=== PATIENT | female | born 1975 | race Caucasian/White ===

== ENCOUNTER 2020-11-07 10:03 | Emergency (ER) | payer MEDICAID ==
--- NOTE | 2020-11-07 10:43 | XRAY Report ---
PROCEDURE: Chest 1 View X-Ray INDICATIONS: Chest pain TECHNIQUE: One view of the chest was acquired. COMPARISON: None FINDINGS: Surgical changes and devices: None. Lungs and pleura: No pleural effusions or pneumothorax. Lungs are clear. Mediastinum: Mediastinal contours appear normal. Heart size is normal. Bones and chest wall: No suspicious bony lesions. Overlying soft tissues appear unremarkable. IMPRESSION: No acute cardiopulmonary pathology. Reviewed by: Stuart Rosado MD on 11/07/2020 10:42 AM PDT Approved by: Stuart Rosado MD on 11/07/2020 10:42 AM PDT Station ID: [id number]
[2020-11-07 11:02] LABS: BASOPHILS % (AUTO) 0.5 %; EOSINOPHILS % (AUTO) 0.2 %; HCT - HEMATOCRIT 37.4 % (37.0-47.0); HGB - HEMOGLOBIN 12.4 g/dL (12.0-16.0); LYMPHOCYTES # (AUTO) 1.5 10^3/uL (1.5-3.5); LYMPHOCYTES % (AUTO) 18.7 %; MEAN CORPUSCULAR HEMOGLOBIN 29.9 pg (27.0-31.0); MEAN CORPUSCULAR HGB CONC 33.2 g/dL (32.0-36.0); MEAN CORPUSCULAR VOLUME 90.1 fL (81.0-99.0); MEAN PLATELET VOLUME 10.3 fL (7.9-10.8); MONOCYTES # (AUTO) 0.5 10^3/uL (0.0-1.0); NEUTROPHILS # (AUTO) 6.1 10^3/uL (1.5-6.6); NEUTROPHILS % (AUTO) 74.4 %; PLT - PLATELET COUNT 338 10^3/uL (130-450); RED BLOOD COUNT 4.15 10^6/uL (4.20-5.40); RED CELL DISTRIBUTION WIDTH 13.4 % (12.0-15.0); WHITE BLOOD COUNT 8.2 x10^3/uL (4.8-10.8)
--- NOTE | 2020-11-07 11:09 | ED Physician Documentation ---
PD HPI CHEST PAIN - Stated complaint Stated Complaint: CHEST PRESSURE/SENT BY - Chief complaint Chief Complaint: Cardiac - History obtained from History obtained from: Patient - History of Present Illness Timing - onset: How many months ago (1) Timing - duration: Months (1) Timing - details: Gradual onset, Still present, Waxing and waning (never really resolves with steady tightness/pressure at mild level, but worse with activity/walking. She has still been able to do usual level of walking, but much more winded/chest tightness with it. Mild dry cough but persistent. Onset few days after 2nd Moderna COVID vaccine.) Quality: Tightness. No: Sharp, Tearing Location: Substernal, Left chest Radiation: No: Neck, Back Improved by: No: Rest Worsened by: Exertion. No: Eating, Movement, Palpation Associated symptoms: Shortness of air, Cough. No: Nausea, Feeling faint / dizzy, Palpitations Similar symptoms before: Has not had sx before Review of Systems Constitutional: denies: Fever, Chills Nose: denies: Rhinorrhea / runny nose, Congestion Throat: denies: Sore throat Cardiac: reports: Chest pain / pressure. denies: Palpitations, Pedal edema, Calf pain Respiratory: reports: Dyspnea. denies: Cough, Wheezing GI: denies: Abdominal Pain, Nausea, Vomiting, Diarrhea Skin: denies: Rash, Lesions Neurologic: denies: Altered mental status, Headache PD PAST MEDICAL HISTORY - Past Medical History Cardiovascular: None Respiratory: None Neuro: None Endocrine/Autoimmune: None - Present Medications Home Medications: Ambulatory Orders Medication Instructions Recorded Confirmed Albuterol Sulf [Ventolin Hfa 2 - 3 puffs INH Q4HR PRN #1 inhaler 11/07/20 Inhaler] dexAMETHasone [Decadron] 4 mg PO DAILY #5 tablet 11/07/20 - Allergies Allergies/Adverse Reactions: Allergies Allergy/AdvReac Type Severity Reaction Status Date / Time No Known Drug Allergies Allergy Verified 11/07/20 10:17 - Living Situation Living Situation: reports: Alone Living Arrangement: reports: At home PD ED PE NORMAL - Vitals Vital signs reviewed: Yes - General General: Alert and oriented X 3, No acute distress, Well developed/nourished - HEENT HEENT: Pharynx benign - Neck Neck: Supple, no meningeal sign, No adenopathy - Cardiac Cardiac: RRR, No murmur - Respiratory Respiratory: Clear bilaterally, Other (no chestwall tenderness. ) - Abdomen Abdomen: Normal bowel sounds, Soft, Non tender, Non distended - Derm Derm: Normal color, Warm and dry - Extremities Extremities: No tenderness to palpate, Normal ROM s pain, No edema, No calf tenderness / cord - Neuro Neuro: Alert and oriented X 3, No motor deficit, Normal speech Results - Vitals Vitals: Vital Signs - 24 hr 11/07/20 11/07/20 11/07/20 10:13 11:05 11:52 Temperature 36.2 C L 36.2 C L Heart Rate 96 83 84 Respiratory 20 19 18 Rate Blood Pressure 174/89 H 174/80 H O2 Saturation 99 96 11/07/20 11/07/20 11/07/20 12:00 13:50 15:30 Temperature 36.5 C Heart Rate 88 19 L 88 Respiratory 16 20 16 Rate Blood Pressure 131/84 H 125/83 H 139/79 H O2 Saturation 100 100 99 Oxygen O2 Source Room air - EKG (time done) 10:09 Rate: Rate (enter#) (86) Rhythm: NSR [place]: Normal Intervals: Normal IA QRS: Normal Ischemia: Normal ST segments. No: ST elevation c/w ischemia, ST depression Compare to prior EKG: Old EKG unavailable - Labs Labs: Laboratory Tests 11/07/20 11/07/20 11/07/20 10:57 10:57 10:57 WBC 8.2 RBC 4.15 L Hgb 12.4 Hct 37.4 MCV 90.1 MCH 29.9 MCHC 33.2 RDW 13.4 Plt Count 338 MPV 10.3 Neut # (Auto) 6.1 Lymph # (Auto) 1.5 [place] # (Auto) 0.5 Eos # (Auto) 0.0 Baso # (Auto) 0.0 Absolute Nucleated RBC 0.00 Nucleated RBC % 0.0 ESR Sodium 137 Potassium 3.5 Chloride 102 Carbon Dioxide 25 Anion Gap 10.0 BUN 14 Creatinine 0.7 Estimated GFR (MDRD) 90 Glucose 108 H Calcium 9.0 Total Bilirubin 0.6 AST 18 ALT 15 Alkaline Phosphatase 62 Troponin I High Sens < 2.3 L B-Natriuretic Peptide Total Protein 7.9 Albumin 4.1 Globulin 3.8 Albumin/Globulin Ratio 1.1 Lipase 37 11/07/20 11/07/20 10:57 10:57 WBC RBC Hgb Hct MCV MCH MCHC RDW Plt Count MPV Neut # (Auto) Lymph # (Auto) [place] # (Auto) Eos # (Auto) Baso # (Auto) Absolute Nucleated RBC Nucleated RBC % ESR 24 H Sodium Potassium Chloride Carbon Dioxide Anion Gap BUN Creatinine Estimated GFR (MDRD) Glucose Calcium Total Bilirubin AST ALT Alkaline Phosphatase Troponin I High Sens B-Natriuretic Peptide 35 Total Protein Albumin Globulin Albumin/Globulin Ratio Lipase - Rads (name of study) chest xray Radiology: Prelim report reviewed, See rad report (no acute process) ECHO Radiology: Prelim report reviewed (no effusion, normal contractility with EF 65- 70%. no notable abnormality. ), See rad report PD MEDICAL DECISION MAKING - ED course Complexity details: reviewed results (no acute process. Normal labs. Still consider airway process with some concern of anginal equivalent but would be unusual to have continual symptoms even at rest without some sign of heart failure, trop, or ECHO changes. Still provacative testing would be more definitive. ), re-evaluated patient, considered differential (can eval for cardiomyopathy, carditis but also consider ischemic heart disease, reactive airway process, asthma, etc.), d/w patient, d/w [employer] sales consultant (storeperson for PCP, who will pass message to PCP for my concern of expidted follow up and stress testing. ) Departure - Departure Disposition: 01 Home, Self Care Clinical Impression: Dyspnea, Chest pressure Condition: Stable Record reviewed to determine appropriate education?: Yes Instructions: ED Chest Pain Atypical Unkn Cause Follow-Up: Mary Carmen Lackey ARNP [Primary Care Provider] - Prescriptions: Albuterol Sulf [Ventolin Hfa Inhaler] 2 - 3 puffs INH Q4HR PRN #1 inhaler PRN Reason: Shortness Of Air/Wheezing dexAMETHasone [Decadron] 4 mg PO DAILY #5 tablet Comments: Your tests here which include blood tests, EKG, chest x-ray, echocardiogram are appear normal. No signs of heart enlargement or cardiomyopathy or pericarditis or heart failure. No pneumonia nor fluid in the lungs. Still under consideration would be ischemic heart disease. I talked with your on-call provider for your primary care and they will arrange a expedited stress testing for the heart to ensure that is not the problem. Other consideration would be some inflammation of the airways. We can try treating that with Decadron steroid as well as an albuterol inhaler as directed. I would suggest the inhaler 2 to 3 puffs 4 times a day for the next several days to week regularly and then to as needed. Follow-up with your primary care regarding reevaluation in several days and also arranging the stress test. Discharge Date/Time: 11/07/20 15:41
[2020-11-07 11:26] LABS: ALBUMIN 4.1 g/dL (3.2-5.5); ALBUMIN/GLOBULIN RATIO 1.1 (1.0-2.2); BILIRUBIN,TOTAL 0.6 mg/dL (0.2-1.0); CREATININE 0.7 mg/dL (0.4-1.0); POTASSIUM 3.5 mmol/L (3.5-5.0); TOTAL PROTEIN 7.9 g/dL (6.7-8.2)
[2020-11-07] MEDS ORDERED: ALBUTEROL 1 PUFF INH STA (11:34)
[2020-11-07 15:37] VITALS: BP 139/79
== END 2020-11-07 15:41 | disposition home or self-care (01) ==
LOC: ED 10:03
DX: R07.89 Other chest pain (principal); R06.02 Shortness of breath; R05 Cough
CPT/HCPCS: 36415; 80053; 83690; 83880; 84484; 85025; 85651; 93005; 93306; 94640; 99284

== ENCOUNTER 2020-12-27 09:05 | Outpatient (CLI) | payer MEDICAID ==
--- NOTE | 2020-12-27 10:42 | CARDIAC PROCEDURE NOTE ---
Stress Test Report Service Date: 12/27/20 Service Time: 10:00 Ordering Provider: Mary Carmen Lackey FNP-C Indication for Test: Assess for ischemic contribution to syndrome of reduced exertional tolerance, palpitations and nearly constant chest pressure, that started after second Covid vaccine. Significant Medical History: -Sherine has had progressive decrease in her exertional tolerance over the past 3 months, with some associated cough and palpitations at higher heart rates during exertion as well as constant low-grade substernal chest pressure (rated as "2-3" in severity, possibly increased incrementally with exertion). -She was initially evaluated at an Emergency Department visit and her care has been gradually transitioned to her current outpatient provider. She underwent a diagnostic echocardiogram 6 weeks ago that was normal in all aspects. She was found to be hypertensive and has been initiated on moderate dose losartan, which she has tolerated without side effects and she believes has resulted in improvement in blood pressure control. Cardiac Risk Factors: Notable only for a prior tobacco smoking history which she discontinued in 2010, as well as recently diagnosed hypertension. Assessment of cholesterol is pending. She has no history of diabetes and the only family member she is aware of with atherosclerotic disease is her maternal grandfather, who had a heart attack in later years of his life. She is unaware of anyone with premature heart attack or stroke. Type of Stress Test: ETT with Echocardiography Procedure: -Exercise Treadmill Test- After signing informed consent, the patient underwent resting echo imaging. She then performed treadmill exercise using a Carlos protocol. The patient exercised for 9 minutes 8 seconds and achieved a peak heart rate of 176 (101 percent predicted maximum heart rate for age), and an estimated workload of 10.2 METS. The test was terminated due to fatigue/shortness of breath, having reached t arget heart rate. Resting heart rate: 85 Peak heart rate: 176 Normal response to exercise. Resting BP: 150/92 Peak BP: 212/92 Hypertensive at baseline with physiologic BP response to exercise. Rhythm during exercise: Sinus rhythm throughout. Symptoms: Her substernal chest pressure increased from baseline level of "2-3" to "6" in stage 3, with sensation of palpitations; symptoms returned to baseline in early recovery. EKG at rest showed normal sinus rhythm, normal in all aspects. EKG at peak stress showed upsloping ST depression (1.0 mm at 60 msec post J- point) that likely meets EKG criteria for ischemia. In Recovery HR decreased physiologically and BP decreased to the normal range (135/78) at 5 minutes. Echo imaging was performed at rest and with stress, and will be reported separately. Summary: 1) Exercise tolerance slightly above average for age and gender as evidenced by MARIA ALEJANDRA of -11%. 2) Normal resting EKG. 3) Adequate level of exercise was achieved on this treadmill stress test. 4) Mildly hypertensive at baseline with physiologic BP response to exercise. 5) Borderline ischemic changes by EKG criteria were seen at peak stress, however could be false positive response, due to patient's hypertension, age and female gender. 6) Echo image interpretation includes normal left ventricular size and systolic function, with no evidence of prior infarct or inducible ischemia. See separate echo report for more detail. CONCLUSIONS: 1) This is a low risk stress echocardiogram, that is reassuring in showing slightly above average exercise tolerance, and no evidence of inducible ischemia by echo image analysis. The borderline ST depression should be considered a false positive finding. 2) The patient was mildly hypertensive at baseline, with a robust BP increase with exercise. Re-assessment of adequacy of ambulatory BP control may be appropriate. 3) In sum the findings suggest that her chest discomfort is not a manifestation of cardiac ischemia.
== END 2020-12-27 09:06 | disposition home or self-care (01) ==
LOC: DI 09:05
PROVIDERS: ATTEND Registered Nurse
DX: Z78.9 Other specified health status (principal); R07.89 Other chest pain; I10 Essential (primary) hypertension; Z87.891 Personal history of nicotine dependence
CPT/HCPCS: 93350

== ENCOUNTER 2021-05-13 10:40 | Outpatient (CLI) | payer MEDICAID ==
--- NOTE | 2021-05-14 08:19 | Ultrasound Report ---
LIMITED ULTRASOUND OF RIGHT BREAST AND AXILLA: 05/13/2021 CLINICAL: Patient returns today to evaluate an asymmetries Palpable right breast lump. in the right b reast. Comparison is made to exam dated: 05/13/2021 mammogram - [facility]. Color flow and real-time ultrasound of the right breast 11-12 o'clock, and axilla regions were perfor med. Augustine scale images of the real-time examination were reviewed. There is an irregular mass with a circumscribed margin in the right breast central to the nipple ante rior depth. This irregular mass is anechoic with posterior acoustic shadowing. There are multiple simple cysts in the right breast, including a dominant cyst measuring up to 2.5 cm which likely accounts for the palpable abnormality. There is also a well-circumscribed oval hypoecho ic and non-vascular fibroadenoma in the right breast. IMPRESSION: SUSPICIOUS OF MALIGNANCY The irregular mass in the right breast is suspicious of malignancy. An ultrasound guided biopsy is r ecommended. This exam was interpreted at Station ID: [id number]. Electronically Signed By: Amor Zhang M.D. jr/:05/13/2021 13:16:45 Ultrasound BI-RADS: 4 Suspicious for malignancy BI-RADS CATEGORY: (4) - 4 None [id number] Immediate follow-up LATERALITY: ()
--- NOTE | 2021-05-14 08:19 | Ultrasound Report ---
LIMITED ULTRASOUND OF LEFT BREAST: 05/13/2021 CLINICAL: Patient returns today to evaluate an asymmetries in the left breast. Comparison is made to exam dated: 05/13/2021 mammogram - [facility]. Color flow and real-time ultrasound of the left breast 12 o'clock region were performed. Augustine scale images of the real-time examination were reviewed. There are multiple simple cysts in the left central breast, all simple in appearance and correspondin g in both size and position to the asymmetries demonstrated mammographically. No suspicious shadowing mass. IMPRESSION: NEGATIVE There is no sonographic evidence of malignancy. An ultrasound guided biopsy of the right breast is r ecommended; please see separately dictated report. This exam was interpreted at Station ID: [id number]. Electronically Signed By: Amor Zhang M.D. jr/:05/13/2021 13:12:00 Ultrasound BI-RADS: 1 Negative BI-RADS CATEGORY: (1) - 1 RECOMMENDATION: (ANNUAL) - Recommend routine annual screening mammography. [id number] 1 year screening LATERALITY: (B)
--- NOTE | 2021-05-14 08:19 | Mammography Report ---
BILATERAL DIGITAL DIAGNOSTIC MAMMOGRAM 3D/2D: 05/13/2021 CLINICAL: Palpable right breast lump. Baseline exam. No prior exams were available for comparison. The tissue of both breasts is heterogeneously dense. T his may lower the sensitivity of mammography. There is a mass in the right breast at 9 o'clock middle depth. There also is a mass in the right breast central to the nipple middle depth. There are multiple masses in the left breast central to the nipple middle depth. No other significant masses or calcifications are seen in either breast. IMPRESSION: INCOMPLETE: NEEDS ADDITIONAL IMAGING EVALUATION The mass in the right breast at 9 o'clock middle depth is indeterminate. An ultrasound is recommende d. The mass in the right breast central to the nipple middle depth is indeterminate. An ultrasound is r ecommended. The multiple masses in the left breast central to the nipple middle depth are indeterminate. An ultr asound is recommended. This exam was interpreted at Station ID: [id number]. NOTE: For mammograms, a report in lay terms will be sent to the patient. Approximately 15% of breast malignancies will not be visualized mammographically. In the management of a palpable breast mass, a negative mammogram must not discourage biopsy of a clinically suspicious lesion. Electronically Signed By: Amor Zhang M.D. jr/:05/13/2021 11:50:33 ACR BI-RADS Category 0: Incomplete [id number] PARENCHYMAL PATTERN: (D) - The breast(s) demonstrate(s) heterogeneously dense fibroglandular parenchy ma. BI-RADS CATEGORY: (0) - 0 Ultrasound [id number] Immediate follow-up LATERALITY: (B)
== END 2021-05-13 10:41 | disposition home or self-care (01) ==
LOC: DI 10:40
PROVIDERS: ATTEND Registered Nurse
DX: N63.41 Unspecified lump in right breast, subareolar (principal)